=== PATIENT | male | born 1955 | race Caucasian/White ===

== ENCOUNTER 2019-04-01 11:44 | Emergency (ER) | payer BC ==
[~2019-04-01 11:44] MED LIST: ATR10 PO
--- NOTE | 2019-04-01 11:59 | ER Report ---
History and Physical Time Seen By MD: 11:55 Hx. of Stated Complaint: Pt. was using a wood splitter and injured his left index finger. HPI/ROS CHIEF COMPLAINT: Finger trauma HISTORY OF PRESENT ILLNESS: 63-year-old male comes in with trauma to his index finger of his nondominant left hand secondary to the utilization of a wood splitter evidently the finger was caught in the wood splitter evidently the globe pull the finger and was wearing a workload at the time pain in trauma to the distal tuft and distal 3rd of the index finger the nondominant left hand no other complaints noted REVIEW OF SYSTEMS: Respiratory: No cough, no dyspnea. Cardiovascular: No chest pain, no palpitations. Gastrointestinal: No vomiting, no abdominal pain. Musculoskeletal: Trauma to the index finger Remainder of the 14 system rev: Yes Allergies: Coded Allergies: No Known Drug Allergies (Verified , 04/01/19) Home Meds Reported Medications Atorvastatin (Lipitor) 10 Mg Tab, 10 MG PO QHS, 0 Refills 08/15/09 Reviewed Nurses Notes: Yes Old Medical Records Reviewed: Yes Constitutional Vital Sign - Last 24 Hours 04/01/19 11:49 Temp 98.7 Pulse 92 Resp 16 Pulse Ox 92 O2 Delivery Room Air Physical Exam General appearance: Alert no distress. Respiratory: Chest is non tender, lungs are clear to auscultation. Cardiac: Regular rate and rhythm [ ] Left hand examination and x-ray of the nondominant left hand is difficult trauma to the distal 3rd of the index finger complete avulsion of the distal tuft nailbed exposed nail is been torn off and hanging loosely by attachment skin neurovascularly intact is able to flex the PIP and the DIP joint no other trauma noted DIFFERENTIAL DIAGNOSIS: After history and physical exam differential diagnosis was considered for finger trauma Medical Decision Making ED Course/Re-evaluation ED Course ED course 53-year-old male with his finger caught in a reports slicer Procedural note patient's index finger was x-rayed demonstrating a fracture spoke with orthopedics as instructed for a simple closure to preserve the nail bed Closure procedure finger was digitally blocked with 1% lidocaine without epinephrine 2 mL on either side with good analgesia patient tolerated well was cleaned copiously irrigated upon completion the nail was removed nail bed was repaired with 9 interrupted sutures patient tolerated well clean sterile dressing applied Patient will follow up with primary care for suture removal and be placed on antibiotics Decision to Disposition Date: Apr 01, 2019 Decision to Disposition Time: 13:26 Depart Departure Latest Vital Signs Vital Signs Date Time Temp Pulse Resp B/P (MAP) Pulse Ox O2 Delivery O2 Flow Rate FiO2 04/01/19 11:49 98.7 92 16 92 Room Air Impression: Primary Impression: Crush injury to finger Condition: Improved Disposition: HOME OR SELF-CARE Referrals: HIPOLITO CHAUHAN DO (PCP) LILIYA CHAPPELL MD 2 Days New Scripts Cephalexin (KEFLEX) 500 Mg Capsule 500 MG PO BID for 14 Days, #30 CAP 0 Refills TAKE ONE CAPSULE BY MOUTH EVERY SIX HOURS Prov: YOUNG DUMONT MD 04/01/19 Patient Instructions: Finger Fracture (ID), Open Finger Fracture ([facility]) YOUNG DUMONT MD Apr 01, 2019 11:59
[2019-04-01] MEDS ORDERED: CEPH-13 PO (13:30)
--- NOTE | 2019-04-01 13:41 | RADIOLOGY IMAGING REPORT ---
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 Pain. Comparison: None Available. Findings: Skin surface irregularity at the second finger distally is present, compatible with laceration. Focal amputation distally involves a portion of the second distal phalanx tuft, central to lateral as pect, with focal tuft gap measuring approximately 2 x 3 x 4 mm in length by AP by transverse dimensio n. Mild diffuse interphalangeal joint degenerative change is present. IMPRESSION: 1. Laceration second finger distally, with focal amputation through the second distal phalanx tuft, a nd overlying soft tissues. Report Dictated By: Mame Jaeger MD at 04/01/2019 1:27 PM Report E-Signed By: Mame Jaeger MD at 04/01/2019 1:32 PM WSN:[email or web address]
== END 2019-04-01 13:45 | disposition home or self-care (01) ==
LOC: ER 11:56
DX: S61.301A Unspecified open wound of left index finger with damage to nail, initial encounter (principal); W31.89XA Contact with other specified machinery, initial encounter; Z79.899 Other long term (current) drug therapy
CPT/HCPCS: 99283